=== PATIENT | female | born 1985 ===

== ENCOUNTER 2016-04-01 09:50 | Inpatient (IN) | payer OTHER ==
[~2016-04-01] VITALS: Ht 160 cm; Wt 64.7 kg
[2016-04-01 10:12] VITALS: BP 93/65; PULSE 78
[2016-04-01] MEDS ORDERED: NURSING VERBAL MED ORDER ONE ×3 (10:15→11:00)
[2016-04-01] MEDS ORDERED: FERR1TAB13 PO (10:18)
[2016-04-01] MEDS ORDERED: LEVE250T PO (10:19)
[2016-04-01] MEDS ORDERED: GABA-113 PO (10:19)
[2016-04-01] MEDS ORDERED: POTA10CA28 PO (10:20)
[2016-04-01] MEDS ORDERED: PRENCHW PO (10:21)
[2016-04-01] MEDS ORDERED: PROP80TA2 PO (10:21)
[2016-04-01 10:47] VITALS: BP 93/65; PULSE 78; TEMP 36.7
[2016-04-01] MEDS ORDERED: MAGNESIUM HYDROXIDE SUSP 30 ML UDC PO PRN (11:00)
[2016-04-01] MEDS: LEVETIRACETAM 500 MG TAB PO SCH ×2 (11:00→21:02)
[2016-04-01] MEDS ORDERED: hydrOXYzine HCL 25 MG TAB PO PRN ×2 (11:00)
[2016-04-01] MEDS ORDERED: ALUMINUM/MAGNESIUM SUSP 30 ML UDC PO PRN (11:00)
[2016-04-01] MEDS ORDERED: BISMUTH SUBSALICYLATE PER ML OMNICELL CHARGE PO PRN (11:00)
[2016-04-01] MEDS ORDERED: SODIUM CHLORIDE 0.65% NA SOLN 45 ML (OCEAN) PRN (11:00)
[2016-04-01] MEDS ORDERED: PATIENT'S ALLERGY INFO NEEDS ENTERED SCH (11:30)
[2016-04-01] MEDS ORDERED: METH5TAB2 PO (11:52)
[2016-04-01] MEDS ORDERED: RIZA10TA18 PO (11:52)
[2016-04-01] MEDS ORDERED: PROPRANOLOL HCL 80 MG TAB PO ONE (12:02)
[2016-04-01] MEDS ORDERED: GABAPENTIN 600 MG TAB PO ONE (12:02)
[2016-04-01] MEDS ORDERED: POTASSIUM CHLORIDE 20 MEQ TABCR PO ONE (12:02)
[2016-04-01] MEDS ORDERED: METHADONE HCL 5 MG TAB PO ONE (12:02)
--- NOTE | 2016-04-01 12:54 | HISTORY & PHYSICAL EXAMINATION ---
DATE OF ADMISSION: 04/01/2016 IDENTIFYING INFORMATION: Keturah Lynch is a 30-year-old single white female with a history of depression, anxiety, and polysubstance abuse per her report, who presents as a transfer from [facility] Emergency Room where she presented yesterday with worsening depression and suicidality. She was admitted voluntarily. CHIEF COMPLAINT: "Oh my God me and my boyfriend got into an argument." HISTORY OF PRESENT ILLNESS: The patient has not been seen in our facility before. She was accepted as a transfer from an outside hospital emergency room after she presented there yesterday with a friend and endorsed worsening depression and suicidality in the context of multiple stressors. She is 16 weeks , unemployed, has financial strain and had gone off of her psychiatric medications (Lexapro and Ativan) when she found out she was in December. Two days prior to presentation, she had gotten into a fight with her boyfriend whom she was living with and he kicked her out. She jumped out of a window that was about 10 feet high, and then went to stay with a friend, Wilma, who brought her to the Emergency Room as she was concerned about the patient's safety and her baby's safety. She was given Macrobid in the Emergency Room due to concerns for UTI and her drug screen was positive for methadone, which she says she is prescribed, and amphetamines. She admitted that she had not been caring for herself, had lost 20 pounds in the past 2 months, and had missed her last 2 OB appointments. The outside hospital records indicate that the patient did not want to be admitted to the hospital, but signed a 201. On my assessment today, the patient is seen in her room where she is in bed. She refuses to make eye contact, often turning away, and is a limited historian, giving vague and inconsistent answers. She admits that her mood has been depressed and more irritable, and attributes this to multiple stressors and being taken off "all my psych meds" when she found out she was in early December. She states her PCP prescribes all her psychiatric medications and stopped them abruptly when she learned she was as "they told me they are not safe for the baby." She says she continues to take multiple other medications including potassium, Keppra, gabapentin, methadone, but does not know the doses. She initially told staff her methadone dose was 136mg, but her PCP's office reports that it is 128mg daily. She states that her mood was "fine, actually getting better" until 3 nights ago when she got into an argument with her boyfriend and he kicked her out. They had been living in a house owned by his stepfather, which she states was a bad situation as "we were accused of stealing whenever we came out of the room." She states that prior to the argument, she and her boyfriend were making plans to get jobs and get their own place, but that currently neither of them are employed or have any income. She then contradicts herself, stating that both of them have been "in a bad depression" and had not been functioning well for some time. She states she has talked with her boyfriend since the flight and they have made up and "everything's fine." She says she went to the hospital yesterday because her friend Wilma was concerned about her and wanted her to get the baby checked out, as she had jumped out of the window 2 nights prior during the argument with the boyfriend. She then admits that her friend heard her say "I would rather put a bullet through my head right now," which she admits to saying, but says she was feeling overwhelmed and attributes it to "the stressful situation." She denies that she has access to guns and denies that she wants to hurt herself or her baby. She denies that she was trying to hurt herself when she jumped out of the window and says she was "just trying to leave because he told me to get out." She also states that her boyfriend talked to her friend Wilma and told her to get the patient help because "I can't eat or sleep, I'm stressed, they took me off all my meds." At one point she starts to say that she "took something," but then does not complete the statement and refuses to elaborate when asked. She initially denies taking anything that could have caused a positive amphetamine screen, but then states she has been taking [id number] cold medications, inhalers, and other medications that she would not name. She is angry that she has not yet received her methadone today, stating "they said they already took care of all this at the other place." She was advised that we had to confirm the dose prior to giving it to her to ensure safety and that she is not given too much as it can be dangerous. She blames others for her circumstances saying she had agreed to followup with outpatient providers, but "no one had any patience, they could not get it done." She answers "I don't know" to a lot of questions and gives inconsistent and contradicting reports at times. She does endorse depressed mood. States appetite has been down due to stress and she has lost 20 pounds in the past 2 months. She endorses hopelessness, poor energy and decreased sleep. She denies anhedonia saying she enjoys walking with her boyfriend and spending time with her 10-year-old son. She does endorse irritability. She denies symptoms of melissa now or in the past. She states she becomes suicidal and has suicidal thoughts when she is upset or angry and will also pick at her skin during those times. She reports "bad anxiety" but is vague about the symptoms saying "I don't know" when asked to be more specific. She denies symptoms of psychosis, OCD and PTSD. When asked what her goals of hospitalization are, she says "I don't know." PAST PSYCHIATRIC HISTORY: The patient states she has been diagnosed with depression and anxiety in the past. She states she has never seen a psychiatrist or therapist, but does have a correctional counselor/case manager, a woman named Wednesday, last name unknown, through [facility]. She cannot tell me how long she has been working with this individual. She reports 1 previous psychiatric admission to [facility] in [place] at age 10, and cannot tell me why she was admitted. She denies a history of violence towards others and denies access to guns. She denies a history of suicide attempts, self-injurious behavior. PREVIOUS MEDICATION TRIALS: Include, but are not limited to, Ativan, Klonopin, Xanax, Lexapro, Wellbutrin, Paxil. ALLERGIES: PHENOBARBITAL. PAST MEDICAL HISTORY: PCP is Dr. Hanson. OB is Dr. Cornejo. 1. G2, P1, unintended . Found out she was January 02 and currently 16 weeks per ultrasound at outside hospital. 2. Seizure history, with last seizure in January 2016. 3. Denies a personal history of heart disease, hypertension, hyperlipidemia, diabetes or obesity. 4. History of hypokalemia. FAMILY HISTORY: The patient states she knows nothing about her family history and is not aware if any family members have psychiatric illness, substance abuse or have committed or attempted suicide. Medically, she says she does not know if anyone has heart disease, hypertension, hyperlipidemia, diabetes or obesity. SUBSTANCE ABUSE HISTORY: The patient smokes 1 pack per day. She drank "socially," which she is unable to quantify further, until she found out she was January 02, and denies that she has had any alcohol since that time. She states that she has "used everything there is" in the past as far as recreational drugs including heroin, acid, crack, ecstasy and meth. She has used IV drugs. She refuses to tell me when she last used these substances, or how much she used saying "I don't know." She admits to taking [id number]-nxazaic cold medications, although it is unclear if she was using these recreationally or for cold symptoms. She does not answer when asked about inhalant, organic or synthetic substance abuse. She does not answer questions about previous substance abuse treatment, but denies she is in treatment currently other than receiving methadone at [facility], although this has not yet been confirmed. She specifically denies abusing methamphetamine or amphetamines recently, although her drug screen is positive. SOCIAL HISTORY: The patient grew up in [place] near [place]. She does not know her father and was raised by her mother and stepfather, but has had no contact with them in many years. She states they moved to [place] when she was 14 or 15 and kicked her out. She has lived on her own since then and has not had stable housing. She says she does not know how many siblings she has "1, 2, 4, or 5" but says she does not speak with any of them. She refuses to tell me what brought her to this part of the state saying "I don't even know." She was most recently living with her boyfriend, Marvin, who she has been with for a year, with his stepdad, in [place], [place], until her boyfriend kicked her out of the house a few days ago. She then stayed with a friend, Wilma, in the [place] area. She states she graduated from high school. She is currently unemployed and cannot tell me when she last worked or what types of work she has done in the past. She has 1 child, a 10-year-old son named Andi, whose father lives in [place]. She says she has custody of Andi, but that he is currently in the custody of her grandparents in [place] and she has not seen him since the end of January. She again gives conflicting reports, as she initially stated she had been living with her boyfriend, but then says that she has been homeless since . When asked about history of psychological trauma or abuse, she answers "yep," but refuses to give any further information. She admits to legal problems and criminal charges in the past, but denies any current legal issues or being on probation or parole. When asked about strengths she says "I don't know." REVIEW OF SYSTEMS: Reviewed 10 systems, positive for nausea, which she says is due to not yet receiving her methadone. Others negative except as stated above. VITAL SIGNS: Temperature 36.7, pulse 78, respiratory rate 16, blood pressure 93/65. PHYSICAL EXAMINATION: Physical exam performed at the outside hospital emergency room by JOHANNA Trivedi, was reviewed and accepted for the purposes of this admission. MENTAL STATUS EXAMINATION: This is a well-nourished, well-developed female appearing her stated age. She is lying in bed in no acute distress. She has facial acne and multiple tattoos visible on her upper extremities. She has poor eye contact, averting her gaze or even turning her body away and staring at the opposite wall. No abnormal movements. Gait and station are not observed, as she remains in bed. She is partially cooperative with the interview, but often gives vague or evasive answers, says "I don't know" or gives contradicting reports. She is not necessarily forthcoming with information, specifically about her substance abuse. Speech is minimal, angry, irritated tone. Mood is "not good." Affect is restricted to depressed and irritable. Thoughts are goal directed. She denies suicidality, homicidality, hallucinations, paranoia and delusions. She is alert and oriented x3. Memory, attention and language are grossly intact. Level of intelligence estimated to be average. Insight and judgment are impaired. LABORATORY DONE AT OUTSIDE HOSPITAL: Ultrasound showed an intrauterine at 16 weeks with a heart rate of 159. Urine drug screen was positive for amphetamines and methadone. Urinalysis showed 15, trace proteins, greater than 4 urobilinogen, positive nitrite, and small leukocyte esterase. CBC showed elevated white blood cell count of 17.3. Comprehensive metabolic panel showed elevated AST of 34, and low calcium of 8.3. TSH was low at 0.240. RISK ASSESSMENT: Risk factors include single, race, previous psychiatric diagnosis and hospitalization, suicidality with statements of a plan, depressive and anxiety symptoms, reckless behavior, is and has not been caring for herself or the child, with weight loss, missing OB appointment, taking substances that are unsafe in , and dangerous behaviors such as jumping out of windows, homelessness, unemployed, poor support, inability to provide for herself or her 10-year-old child, likely personality disorder, substance abuse and history of abuse. Protective factors include no access to guns, denies a history of suicide attempts, is willing to see outpatient providers and get treatment, and has a supportive friend who brought her to the Emergency Room. DIAGNOSES: 1. Depression, not otherwise specified, rule out major depressive disorder versus substance induced depression versus personality disorder. 2. Polysubstance abuse (amphetamines, opiates, hallucinogens and likely others). 3. Antisocial personality traits. 4. 16 weeks . 5. Rule out urinary tract infection. 6. Rule out thyroid disease. TREATMENT PLAN: 1. Depressive and anxiety symptoms: Could consider resuming an SSRI while here, as the benefits may outweigh the risks in . However, the patient is irritable and unable to engage in a discussion of the risks and benefits of this today, so we will revisit at a later time. It would also be helpful to get some collateral information about her past symptoms and treatment, as it is not clear that she has a clinical depression and may instead have substance induced symptoms or personality disorder which would not warrant treatment with an antidepressant. She certainly should be following up with a psychiatrist and therapist, as well as a correctional counselor/case manager as an outpatient, and we will assist in making these referrals and coordinating care with her correctional counselor/case manager, Shelly, from [facility]. We will continue her gabapentin for seizures, which may also have some off label benefits for mood and anxiety. 2. Antisocial traits: The patient has a history of repeated arrests, impulsive and reckless behavior, blaming others, irritability, and is not necessarily forthcoming with information and these symptoms may be consistent with an antisocial personality disorder. We will continue to gather information from collateral sources. 3. Suicidality: The patient admits to making statements about shooting herself, but denies that she intended to follow through on this. She denies access to guns and this should be confirmed with whomever she is going to live with at discharge. She should attend groups and work on healthy ways to cope and a safety plan while here and referred to outpatient providers for mental health followup. We will recommend a family meeting with her boyfriend and/or friend Wilma. Will also coordinate care with her methadone clinic and they should be advised of her positive drug screen for amphetamines and collateral information sought from her boyfriend and friend as well. She will be on suicide checks for safety while here. 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 4. Substance abuse: The patient admits to abusing many illicit drugs in the past and states that she is currently on methadone from [facility]. We will need to confirm the methadone dose with them, and can then resume it here. She has also been using other substances as evidenced by her drug screen being positive for amphetamines, and states she does not know what this is from. Will attempt to get collateral from her boyfriend and friend. She was counseled against using stimulants, cold medications and other illicit substances while she is , or at any other time for that matter. She may benefit from substance abuse treatment, which we further clarify her recent substance abuse. 5. : The patient had an ultrasound at the outside hospital emergency room, which was normal. We will need to coordinate care with her embedded software engineer Dr. Cornejo, and arrange followup as she states she has missed her last 2 appointments. We will also need to consider a CYS report as it appears she is abusing substances that are potentially unsafe for the baby, is engaging in reckless and unsafe behavior (jumped out of a window), is not caring for herself and not attending appointments as recommended. 6. Seizure disorder: Continue home doses of gabapentin and Keppra. Coordinate care with PCP, Dr. Hanson, who prescribes her outpatient medications, and ensure followup. 7. Rule out thyroid disease. TSH was low at outside hospital and we will repeat a TSH and free T4 here. 8. Rule out UTI. UA was positive at outside hospital. We will repeat this here and will also get a culture for assistance in determining antibiotic treatment if indicated. [id number]. MTDD
[2016-04-01] MEDS ORDERED: METHADONE ORAL SOLN 2 MG/1ML PO ONE (13:00)
[2016-04-01] MEDS: PRENATAL VITAMIN TAB PO SCH (13:03)
[2016-04-01] MEDS: FERROUS SULFATE 325 MG TAB PO SCH (13:03)
[2016-04-01] MEDS: GABAPENTIN 600 MG TAB PO SCH ×2 (14:00→21:02)
[2016-04-01 15:17] LABS: THYROID STIMULATING HORMONE 0.187 uIu/ml (0.300-4.500)
[2016-04-01 18:22] LABS: URINE APPEARANCE CLOUDY (CLEAR); URINE BILIRUBIN NEG (NEG); URINE COLOR DK YELLOW; URINE EPITHELIAL CELL AUTO >30 /lpf (0-5); URINE NITRITE NEG (NEG); URINE PH 6.5 (4.5-7.5); URINE SPECIFIC GRAVITY 1.019 (1.000-1.030); UROBILINOGEN NEG (NEG); ZZUR CULT IF INDIC CLEAN CATCH YES
[2016-04-01 18:25] LABS: MANUAL MICROSCOPIC REQUIRED? NO; REVIEW REQ? NO
[2016-04-01 19:15] VITALS: Ht 160 cm; Wt 64.7 kg
[2016-04-01] MEDS ORDERED: POTASSIUM CHLORIDE 20 MEQ TABCR PO SCH (22:00)
[2016-04-01] MEDS ORDERED: PROPRANOLOL HCL 80 MG TAB PO SCH (22:00)
[2016-04-02 06:47] VITALS: BP_SYST 97; BP_SYST 98; BP_DIAS 60; BP_DIAS 61; PULSE 70; PULSE 79; TEMP 36.4
[2016-04-02] MEDS ORDERED: METHADONE ORAL SOLN 2 MG/1ML PO SCH (09:00)
[2016-04-02] MEDS ORDERED: METHADONE HCL 5 MG TAB PO SCH (09:00)
[2016-04-02] MEDS: LEVETIRACETAM 500 MG TAB PO SCH ×2 (09:19→21:19)
[2016-04-02] MEDS: FERROUS SULFATE 325 MG TAB PO SCH (09:19)
[2016-04-02] MEDS: GABAPENTIN 600 MG TAB PO SCH ×3 (09:20→21:19)
[2016-04-02] MEDS: PRENATAL VITAMIN TAB PO SCH (09:21)
--- NOTE | 2016-04-02 09:48 | Psychiatric Progress Notes ---
Progress Note Date of Service Apr 02, 2016. Interval History Keturah Lynch is a 30-year-old single white female with a history of depression , anxiety, and polysubstance abuse per her report, who presented as a transfer from [facility] Emergency Room where she presented 03/31/16 with worsening depression and suicidality. She was admitted voluntarily. Chief Complaint "Just stressed about the situation". Subjective Patient was seen & assessed interval progress reviewed with Treatment Team. Staff report she refused all groups yesterday, and was very sedated after receiving her medication, falling asleep while eating. She signed ROIs for her outpatient providers, and records were received from her PCP, OB, and methadone clinic. Today the patient states she is frustrated with being here, saying she feels "set back" by being here, as she wants to get out and work on housing and employment. Staff have been working on clarifying her outpatient medications, as she says she is taking propranolol, Keppra, iron supplements, potassium supplements, vitamin, gabapentin 600mg tid, and methadone clinic. We got a fax from [facility] stating her methadone dose is 128mg daily, but the patient insists it is 136mg. Staff have not been able to contact [facility] and was told the phones have been down since yesterday. She says she uses [facility] from [place], and staff are in the process of obtaining a current med list. She is poorly able to describe the recommendations she has been given by her PCP regarding her medications, and doesn't know if she was supposed to stop any of them or not, other than the Lexapro and Ativan, which she understands were discontinued and were stopped in early Dec. when she found out she was . She admits she was supposed to follow up with Dr. Hanson in Jan., but didn't go as she didn't have transportation. She says she missed all her OB appointments due to no transportation, although she was supposed to be meeting with her social work case manager to work on getting medical assistance transportation. She says she is undecided about what to do with respect to her , and has no one to talk to about it. She is not sure if her boyfriend is the father, as she had another partner as well around the time she got . He has asked her to get a DNA test but she doesn't have the money. She thinks the Lexapro was working for her mood and anxiety, and had also been on Zoloft in the past, but thinks the Lexapro worked the best. She was on 20mg for about a year, and didn't have any side effects. Her mood and anxiety both worsened after it was stopped, abruptly per her report, at her ER visit Dec. 7 when she found out she was . We reviewed the risks of untreated depression and anxiety, her past episodes of depression and anxiety, and risks of Lexapro in , as she would like to resume that medication as it worked the best for her. 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 She wants to get a job and get her own place, but is poorly able to figure out how she will do this, due to lack of stable housing and transportation. Sleep Information Total Hours of Sleep: 7.75 Meal Information Percent of Breakfast Consumed: 0 Percent of Dinner Consumed: 100 Mental Status Exam During interview pt is: alert and oriented, cooperative Appearance: appropriately dressed, disheveled Eye contact is: poor (looks at floor) Motor behavior is: steady gait & station, psychomotor agitation Speech: normal in rate, rhythm & volume Affect: depressed, anxious, constricted Mood is: other ("stressed") Thought process: goal directed Thought content: reality based without delusions Suicidal thought are: denied Homicidal thoughts are: denied Hallucinations: denies auditory, denies visual Cognition: attention grossly intact, language grossly intact, other (memory impaired as evidenced by inability to recall instructions she was given regarding medications.) Intelligence estimated to be: average Insight: impaired Judgement: impaired Medication Trials (1) Past Psych Meds Include, but not limited to: Ativan, Klonopin, Xanax, Lexapro, Wellbutrin, Paxil, Zoloft Last Edited By: Ester Ferrell on Apr 02, 2016 11:00 Impression Remains depressed and anxious with acute risk due to inability to care for self , baby and recent SI/erratic behavior/drug use. RISK ASSESSMENT: Risk factors include single, race, previous psychiatric diagnosis and hospitalization, suicidality with statements of a plan, depressive and anxiety symptoms, reckless behavior, is and has not been caring for herself or the child, with weight loss, missing OB appointment, taking substances that are unsafe in , and dangerous behaviors such as jumping out of windows, homelessness, unemployed, poor support, inability to provide for herself or her 10-year-old child, likely personality disorder, substance abuse and history of abuse. Protective factors include no access to guns, denies a history of suicide attempts, is willing to see outpatient providers and get treatment, and has a supportive friend who brought her to the Emergency Room. DIAGNOSES: 1. Depression, not otherwise specified, rule out major depressive disorder versus substance induced depression versus personality disorder. 2. Polysubstance abuse (amphetamines, opiates, hallucinogens and likely others) . 3. Antisocial personality traits. 4. 16 weeks . 5. Rule out urinary tract infection. 6. Rule out thyroid disease. 7. Hepatitis C Continued Inpatient Care Depression and substance abuse are ongoing and patient is not able to provide for her basic needs and is at imminent risk of harm to both herself and her fetus. Plan (1) Suicidal ideation 04/01/16 - The patient admits to making statements about shooting herself, but denies that she intended to follow through on this. She denies access to guns and this should be confirmed with whomever she is going to live with at discharge. She should attend groups and work on healthy ways to cope and a safety plan while here and referred to outpatient providers for mental health followup. We will recommend a family meeting with her boyfriend and/or friend Wilma. Will also coordinate care with her methadone clinic and they should be advised of her positive drug screen for amphetamines and collateral information sought from her boyfriend and friend as well. She will be on suicide checks for safety while here. She indicates that she does not have a courtesy driver's license and does not drive. (2) Depression 04/01/16 - Could consider resuming an SSRI while here, as the benefits may outweigh the risks in . However, the patient is irritable and unable to engage in a discussion of the risks and benefits of this today, so we will revisit at a later time. It would also be helpful to get some collateral information about her past symptoms and treatment, as it is not clear that she has a clinical depression and may instead have substance induced symptoms or personality disorder which would not warrant treatment with an antidepressant. She certainly should be following up with a psychiatrist and therapist, as well as a social work case manager as an outpatient, and we will assist in making these referrals and coordinating care with her social work case manager, Shelly, from [facility]. We will continue her gabapentin for seizures, which may also have some off label benefits for mood and anxiety. 04/02/16 - Discussed SSRI medication, as patient states her depressive and anxiety symptoms are severe, debilitating, and have progressed to point of suicidal thoughts. She reports a good response to Lexapro 20mg which she was on for a year and tolerated well. We reviewed the risks of not treating her depression and anxiety, including impaired ability to function and provide for her basic needs, suicide, harm to the baby due to not caring for herself or going to appointments, relapse of substance abuse, and attempted to compare these to the risks of taking Lexapro in . Provided her with a patient handout about the known risks of Lexapro in , both in development and postnatally, and reviewed these, as well as the problems with limited data available and lack of good controlled studies. She stated she would like to go back on the Lexapro, which is a reasonable decision given her previous good response, the severity of her current and past depressive and anxiety symptoms, and the fact that there was already exposure in her first month of . The risks of untreated depression and anxiety in this patient, both to her and to her baby, appear to outweigh the risks of taking an SSRI in . Will start 5mg daily and can titrate upwards as tolerated. She will need to follow up with a psychiatrist in her area. Would also recommend therapy, which she is resistant to, saying she doesn't trust anyone. Will continue to educate and encourage her to consider this option, as she has very poor supports. (3) Noncompliance Noncompliant with medications and appointments. Involve outpatient social work case manager to assist in arranging transportation, and educate/encourage better compliance. (4) Opiate addiction 04/01/16 - The patient admits to abusing many illicit drugs in the past and states that she is currently on methadone from [facility]. We will need to confirm the methadone dose with them, and can then resume it here. Staff have not been able to contact [facility] due to their phones being down, but did get a faxed report from them dated 03/19/16 which indicates her methadone dose at that time was 128mg daily. The patient reported her dose is 136mg daily , but will order 128mg to avoid oversedation if the higher dose is incorrect. 04/02/16 - Staff have been calling [facility] repeatedly since the patient arrived yesterday morning, and have not been able to reach anyone. They spoke with someone at [facility] who stated the phone system is down. Will continue 128mg dose until we can reach [facility] and confirm her most recent dose. The methadone clinic staff should also be made aware of her positive drug screen for amphetamines. Staff able to contact methadone clinic and confirmed that most recent dose is 136mg, last given on 03/31/16. Will give that dose here. (5) Amphetamine abuse She has also been using other substances as evidenced by her drug screen being positive for amphetamines, and states she does not know what this is from. Will attempt to get collateral from her boyfriend and friend. She was counseled against using stimulants, cold medications and other illicit substances while she is , or at any other time for that matter. She may benefit from substance abuse treatment, which we further clarify her recent substance abuse. (6) Antisocial personality disorder 04/01/16 - Antisocial traits: The patient has a history of repeated arrests, impulsive and reckless behavior, blaming others, irritability, and is not necessarily forthcoming with information and these symptoms may be consistent with an antisocial personality disorder. We will continue to gather information from collateral sources. (7) Polysubstance abuse History of abusing "every drug there is." Refuses to clarify recent substance use. (8) The patient had an ultrasound at the outside hospital emergency room, which was normal. 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 Cornejo, and arrange followup as she states she has missed her last 3 appointments. We will also need to consider a CYS report as it appears she is abusing substances that are potentially unsafe for the baby, is engaging in reckless and unsafe behavior (jumped out of a window), is not caring for herself and not attending appointments as recommended. 04/02/16 - Patient states she won't attend OB appointments, despite this being a high risk , saying she doesn't have transportation. - Made mandated CYS report due to the above, spoke with Carmen at [facility] in [place], who is familiar with the patient. She will try to locate her 10 year old child and ensure his safety. They may be in contact with her, depending on what they determine about her child. She will be in contact with the patient at some point and can offer services through [employer], information about the local fpc, and help getting her to appointments. - Would benefit from social support services, which her OB has referred her to- will ask social work to follow up on that. (9) Fibromyalgia Continue gabapentin at home dose of 600mg tid per PCP's notes. Will need follow up with PCP, Dr Hanson. (10) Seizure disorder 04/01/16 - Continue home doses of gabapentin and Keppra. Coordinate care with PCP, Dr. Hanson, who prescribes her outpatient medications, and ensure followup. 04/02/16 - Reviewed records from PCP, last visit in Dec., and it is not clear which meds she stopped or continued, as the note states to stop propranolol, Keppra, and Maxalt, but then lists them as active prescriptions. Called and spoke to nurse at her clinic, who was also unsure of which medications the patient was supposed to be taking. She will review with Dr. Hanson and call us back to clarify the correct medications. IN the interim, staff obtained a med list from her pharmacy, which indicates recent prescriptions for gabapentin, Se- and ferrous sulfate, although she filled Keppra, Maxalt, propranolol and potassium on 03/04/16. Will continue Keppra for now as patient states she has been taking it daily, but may need to discontinue based on PCP's recommendations. (11) Hepatitis C Has a GI specialist, Dr. Guzman, but not in treatment currently. (12) Rule out UTI UA repeated here and was contaminated sample, awaiting culture results. (13) Rule out hypthyroid TSH low at OSH, Repeated here and TSH low, but free T4 normal. Discharge / Aftercare Planning Primary Care Physician: Name: Grecia Landis Psychiatrist: Name: none Therapist: Name: none Ota: Name: Wednesday at [facility] [place] [facility] Visit Code E&M Code: 36046 Data Vital Signs Last 24 Hrs: Date Time Temp Pulse Resp B/P Pulse Ox O2 Delivery O2 Flow Rate FiO2 04/02/16 06:47 36.4 70 16 98/61 79 97/60 04/01/16 10:47 36.7 78 16 93/65 04/01/16 10:12 78 16 93/65 Meds Administered Last 24 Hrs: Meds Administered (Past 24Hrs) Medications (Trade) Dose Ordered Sig/Tamika Route Start Time Stop Time Status Last Admin Dose Admin Levetiracetam (Keppra Tab) 500 mg BID PO 04/01/16 11:00 05/01/16 10:59 04/02/16 09:19 500 MG Ferrous Sulfate (Feosol Tab) 325 mg QAM PO 04/02/16 09:00 05/02/16 08:59 04/02/16 09:19 325 MG Prenat Multivit/ Sharp/Iron/Folic Ac ( Vitamin Tab) 1 tab QAM PO 04/02/16 09:00 05/02/16 08:59 04/02/16 09:21 1 TAB Miscellaneous Information (Patient'S Allergy Info Needs Entered) 1 ea Q30M N/A 04/01/16 11:30 04/01/16 12:21 DC 04/01/16 11:15 1 EA Gabapentin (Neurontin Tab) 600 mg TID PO 04/01/16 14:00 04/02/16 09:20 600 MG Gabapentin (Neurontin Tab) 600 mg 1202 ONCE PO 04/01/16 12:02 04/01/16 12:22 DC 04/01/16 12:55 600 MG Potassium Chloride (Klor-Con Tab) 20 meq 1202 ONCE PO 04/01/16 12:02 04/01/16 12:22 DC 04/01/16 12:55 20 MEQ Propranolol HCl (Inderal Tab) 80 mg 1202 ONCE PO 04/01/16 12:02 04/01/16 12:22 DC 04/01/16 12:56 80 MG Methadone HCl (Methadone HCl) 128 mg 1300 ONCE PO 04/01/16 13:00 04/01/16 13:01 DC 04/01/16 12:52 128 MG Methadone HCl (Methadone HCl) 128 mg QAM PO 04/02/16 09:00 04/16/16 08:59 1/5/17 09:20 128 MG Lab Results Last 24 Hrs: Last 24 Hours Test 04/01/16 13:39 04/01/16 18:00 Thyroid Stimulating Hormone (TSH) 0.187 uIu/ml Free Thyroxine 1.02 ng/dl Urine Color DK YELLOW Urine Appearance CLOUDY Urine pH 6.5 Urine Specific [place] 1.019 Urine Protein NEG Urine Glucose (UA) NEG Urine Ketones NEG Urine Occult Blood NEG Urine Nitrite NEG Urine Bilirubin NEG Urine Urobilinogen NEG Urine Leukocyte Esterase SMALL Urine WBC (Auto) >30 /hpf Urine RBC (Auto) 0-4 /hpf Urine Hyaline Casts (Auto) 5-10 /lpf Urine Epithelial Cells (Auto) >30 /lpf Urine Bacteria (Auto) 1+
[2016-04-02] MEDS ORDERED: ESCITALOPRAM OXALATE 10 MG TAB PO ONE (10:48)
[2016-04-02] MEDS: ACETAMINOPHEN 325 MG TAB PO PRN (12:04)
[2016-04-03 06:46] VITALS: BP_SYST 113; BP_SYST 114; BP_DIAS 67; BP_DIAS 71; PULSE 57; PULSE 78; TEMP 36.6
[2016-04-03] MEDS ORDERED: ESCITALOPRAM OXALATE 10 MG TAB PO SCH (09:00)
[2016-04-03] MEDS ORDERED: METHADONE ORAL SOLN 2 MG/1ML PO SCH (09:00)
[2016-04-03] MEDS: FERROUS SULFATE 325 MG TAB PO SCH (09:17)
[2016-04-03] MEDS: PRENATAL VITAMIN TAB PO SCH (09:18)
[2016-04-03] MEDS: GABAPENTIN 600 MG TAB PO SCH ×2 (09:18→13:43)
[2016-04-03] MEDS: LEVETIRACETAM 500 MG TAB PO SCH (09:18)
[2016-04-03] MEDS: ACETAMINOPHEN 325 MG TAB PO PRN (11:59)
[2016-04-03] MEDS ORDERED: RIZATRIPTAN BENZOATE 10 MG TAB PO ONE (12:30)
[2016-04-03] MEDS ORDERED: LXP10 PO (13:39)
[2016-04-03] MEDS ORDERED: LEVE500T PO (13:39)
--- NOTE | 2016-04-03 13:54 | Discharge Instructions ---
Discharge Information Report Includes Report will include the: Discharge Instructions & Summary Admission Admission Date / Time: Apr 01, 2016 at 09:50 Reason for Admission: Major Depression Disorder Recurrent Discharge Discharge Diagnosis / Problem: Major depressive disorder, opiate dependence Condition at Discharge: Good Discharge Goals Goal(s): Decrease discomfort, Improve disease control, Prevent Disease Progression Activity Recommendations Activity Limitations: resume your previous activity . Instructions / Follow-Up Instructions / Follow-Up . SPECIAL CARE INSTRUCTIONS: 1. Follow through with your scheduled aftercare appointments. If unable to keep an appointment, please call to reschedule. 2. Take your medication only as prescribed. Medication should not be changed or stopped without the approval of your doctor. In the event of worsening symptoms or concerns about side effects, contact your doctor immediately. 3. Utilize new healthy coping skills, anger management skills, and stress management skills learned during your hospitalization. Journal feelings and process them with a support person. Identify stressors or situations that may result in relapse, deterioration or inappropriate behaviors and develop a plan to deal with those issues. 4. If your coping skills are ineffective and you are in crisis, contact your outpatient providers for direction. If unable to reach your providers, please call the CAN HELP LINE AT or go to the closest Emergency Room. 5. Avoid alcohol and un-prescribed drugs. 6. You have been provided with the Mental Health Advance Directives Pamphlet for your review. AFTERCARE APPOINTMENTS: * Please call your insurance company prior to your scheduled appointment to confirm your aftercare providers are covered. Take your insurance information to your appointments. . 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 Cornejo, OB-Small Boat Engineer Other: Name of Appointment #1: Dr. Krause . Follow-Up Care Plan for Follow-Up Care: Patient has prompt follow up appts and a willingness to be compliant. Current Hospital Diet Patient's current hospital diet: Regular Diet Discharge Diet Recommended Diet: Regular Diet Procedures Procedures Performed: No Pending Studies Pending Studies at Discharge: No Medical Emergencies . Who to Call and When: Medical Emergencies: For questions or emergencies related to your hospital stay, please contact the Inpatient Behavioral Health Unit at [phone]. A bisque placer is on-call 19/10 for the Behavioral Health Unit for emergencies At any time you feel your situation is an emergency, you may also call 911 immediately. . Non-Emergent Contact Non-Emergency issues call your: Primary Care Provider, Psychiatrist, Therapist Advance Directives Existing Advance Directive: No Do You Have an Existing Mental: No Existing Living Will: No Existing Power of Bag Hanger: No Discharge Summary Admission HPI Per the Admitting provider: Please refer to the attached H&P Hospital Course (1) Suicidal ideation 04/01/16 - The patient admits to making statements about shooting herself, but denies that she intended to follow through on this. She denies access to guns and this should be confirmed with whomever she is going to live with at discharge. She should attend groups and work on healthy ways to cope and a safety plan while here and referred to outpatient providers for mental health followup. We will recommend a family meeting with her boyfriend and/or friend Wilma. Will also coordinate care with her methadone clinic and they should be advised of her positive drug screen for amphetamines and collateral information sought from her boyfriend and friend as well. She will be on suicide checks for safety while here. 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 (2) Depression 04/01/16 - Could consider resuming an SSRI while here, as the benefits may outweigh the risks in . However, the patient is irritable and unable to engage in a discussion of the risks and benefits of this today, so we will revisit at a later time. It would also be helpful to get some collateral information about her past symptoms and treatment, as it is not clear that she has a clinical depression and may instead have substance induced symptoms or personality disorder which would not warrant treatment with an antidepressant. She certainly should be following up with a psychiatrist and therapist, as well as a piano case maker as an outpatient, and we will assist in making these referrals and coordinating care with her piano case maker, Shelly, from [facility]. We will continue her gabapentin for seizures, which may also have some off label benefits for mood and anxiety. 04/02/16 - Discussed SSRI medication, as patient states her depressive and anxiety symptoms are severe, debilitating, and have progressed to point of suicidal thoughts. She reports a good response to Lexapro 20mg which she was on for a year and tolerated well. We reviewed the risks of not treating her depression and anxiety, including impaired ability to function and provide for her basic needs, suicide, harm to the baby due to not caring for herself or going to appointments, relapse of substance abuse, and attempted to compare these to the risks of taking Lexapro in . Provided her with a patient handout about the known risks of Lexapro in , both in development and postnatally, and reviewed these, as well as the problems with limited data available and lack of good controlled studies. She stated she would like to go back on the Lexapro, which is a reasonable decision given her previous good response, the severity of her current and past depressive and anxiety symptoms, and the fact that there was already exposure in her first month of . The risks of untreated depression and anxiety in this patient, both to her and to her baby, appear to outweigh the risks of taking an SSRI in . Will start 5mg daily and can titrate upwards as tolerated. She will need to follow up with a psychiatrist in her area. Would also recommend therapy, which she is resistant to, saying she doesn't trust anyone. Will continue to educate and encourage her to consider this option, as she has very poor supports. (3) Noncompliance Noncompliant with medications and appointments. Involve outpatient piano case maker to assist in arranging transportation, and educate/encourage better compliance. (4) Opiate addiction 04/01/16 - The patient admits to abusing many illicit drugs in the past and states that she is currently on methadone from [facility]. We will need to confirm the methadone dose with them, and can then resume it here. Staff have not been able to contact [facility] due to their phones being down, but did get a faxed report from them dated 03/19/16 which indicates her methadone dose at that time was 128mg daily. The patient reported her dose is 136mg daily , but will order 128mg to avoid oversedation if the higher dose is incorrect. 04/02/16 - Staff have been calling [facility] repeatedly since the patient arrived yesterday morning, and have not been able to reach anyone. They spoke with someone at [facility] who stated the phone system is down. Will continue 128mg dose until we can reach [facility] and confirm her most recent dose. The methadone clinic staff should also be made aware of her positive drug screen for amphetamines. Staff able to contact methadone clinic and confirmed that most recent dose is 136mg, last given on 03/31/16. Will give that dose here. (5) Amphetamine abuse She has also been using other substances as evidenced by her drug screen being positive for amphetamines, and states she does not know what this is from. Will attempt to get collateral from her boyfriend and friend. She was counseled against using stimulants, cold medications and other illicit substances while she is , or at any other time for that matter. She may benefit from substance abuse treatment, which we further clarify her recent substance abuse. (6) Antisocial personality disorder 04/01/16 - Antisocial traits: The patient has a history of repeated arrests, impulsive and reckless behavior, blaming others, irritability, and is not necessarily forthcoming with information and these symptoms may be consistent with an antisocial personality disorder. We will continue to gather information from collateral sources. (7) Polysubstance abuse History of abusing "every drug there is." Refuses to clarify recent substance use. (8) The patient had an ultrasound at the outside hospital emergency room, which was normal. We will need to coordinate care with her traffic manager Dr. Cornejo, and arrange followup as she states she has missed her last 3 appointments. We will also need to consider a CYS report as it appears she is abusing substances that are potentially unsafe for the baby, is engaging in reckless and unsafe behavior (jumped out of a window), is not caring for herself and not attending appointments as recommended. 04/02/16 - Patient states she won't attend OB appointments, despite this being a high risk , saying she doesn't have transportation. - Made mandated CYS report due to the above, spoke with Carmen at [facility] in [place], who is familiar with the patient. She will try to locate her 10 year old child and ensure his safety. They may be in contact with her, depending on what they determine about her child. She will be in contact with the patient at some point and can offer services through [employer], information about the local fpc, and help getting her to appointments. - Would benefit from social support services, which her OB has referred her to- will ask social work to follow up on that. (9) Fibromyalgia Continue gabapentin at home dose of 600mg tid per PCP's notes. Will need follow up with PCP, Dr Hanson. (10) Seizure disorder 04/01/16 - Continue home doses of gabapentin and Keppra. Coordinate care with PCP, Dr. Hanson, who prescribes her outpatient medications, and ensure followup. 04/02/16 - Reviewed records from PCP, last visit in Dec., and it is not clear which meds she stopped or continued, as the note states to stop propranolol, Keppra, and Maxalt, but then lists them as active prescriptions. Called and spoke to nurse at her clinic, who was also unsure of which medications the patient was supposed to be taking. She will review with Dr. Hanson and call us back to clarify the correct medications. IN the interim, staff obtained a med list from her pharmacy, which indicates recent prescriptions for gabapentin, Se- and ferrous sulfate, although she filled Keppra, Maxalt, propranolol and potassium on 03/04/16. Will continue Keppra for now as patient states she has been taking it daily, but may need to discontinue based on PCP's recommendations. (11) Hepatitis C Has a GI specialist, Dr. Guzman, but not in treatment currently. (12) Rule out UTI UA repeated here and was contaminated sample, awaiting culture results. (13) Rule out hypthyroid TSH low at OSH, Repeated here and TSH low, but free T4 normal. Risk Factors Assessment : Yes /single/: Yes Higher / Fall in social status: No Access to guns: No Mental Health Diagnoses: Yes Substance use disorders: Yes Previous psychiatric stay: Yes Hopelessness: No Smoker: Yes Protective Factors Assessment Oriental Orthodox beliefs: No : No Responsible for young children: No Employed: No Stable relationships: No Supportive family: No Day of Discharge Assessment COURSE OF HOSPITALIZATION: During the patient's brief 2 day stay, she was stabilized on Lexapro 5 mg daily. She was fully consented to the potential risks to she and her unborn child, accepted these and wanted to proceed. She was continued on her medical medications. The patient indicated that her suicidal statements came as a result of an argument with her boyfriend. She is , and feeling under stress that she has been homeless since . With a help of the psychotherapist social worker, she was able to come up with a discharge plan, including finding a ride home, a ride to the methadone clinic to him tomorrow. they were able to obtain outpatient psychiatric appointments as well with a prompt intake for services. She denied suicidality throughout her stay, was committed to receiving good treatment prenatally for her child. She was continued on methadone for her opiate dependence, and will be able to see them very early tomorrow morning for dosing and prescription. Phone meeting was held with the patient's boyfriend during her stay. He had been concerned because she had been isolating prior to admission but after speaking with her, felt comfortable with her being discharged. Housing continues to be a significant concern as they are homeless. Patient will be able to stay at her boyfriend's mother's apartment at least for several weeks until she can arrange alternate housing. She has arranged for her friend Wednesday and her boyfriend to come pick her up today. DAY OF DISCHARGE ASSESSMENT: Today the patient is requesting discharge. She feels ready to go home and denies that she is feeling depressed or suicidal. She is happy with her aftercare arrangements. She denies any suicidal or homicidal thinking. She has never shown any evidence of thought disorder. Today she is casually and appropriately dressed and groomed, recently showered. Dentition remains impaired. Eye contact is good. Affect is restricted. Speech is of normal rate volume and tone. Thoughts are organized and goal directed, and without evidence of thought disorder. Recent and remote memory are intact, intelligence is estimated to be average. Insight and judgment are improved over admission. Laboratory Test 04/01/16 13:39 04/01/16 18:00 Thyroid Stimulating Hormone (TSH) 0.187 uIu/ml (0.300-4.500) Free Thyroxine 1.02 ng/dl (0.80-1.60) Urine Color DK YELLOW Urine Appearance CLOUDY (CLEAR) Urine pH 6.5 (4.5-7.5) Urine Specific Harlan 1.019 (1.000-1.030) Urine Protein NEG (NEG) Urine Glucose (UA) NEG (NEG) Urine Ketones NEG (NEG) Urine Occult Blood NEG (NEG) Urine Nitrite NEG (NEG) Urine Bilirubin NEG (NEG) Urine Urobilinogen NEG (NEG) Urine Leukocyte Esterase SMALL (NEG) Urine WBC (Auto) >30 /hpf (0-5) Urine RBC (Auto) 0-4 /hpf (0-4) Urine Hyaline Casts (Auto) 5-10 /lpf (0-5) Urine Epithelial Cells (Auto) >30 /lpf (0-5) Urine Bacteria (Auto) 1+ (NEG) Date/Time Source Procedure Growth Status 04/01/16 18:00 Urine , Clean Catch Urine Culture - Final THREE TYPES OF ORGANSIMS PRESENT, ALL... Complete Total Time Total Time Spent (min): Greater than 30 minutes Total Time Included: examination of the patient, discharge planning, medication reconciliation, communication with other providers Tobacco Cessation at Discharge FDA approved Prescription: patient refused
== END 2016-04-03 19:35 | disposition home or self-care (01) | DRG 781 ==
LOC: C.MHU 09:50
PROVIDERS: ADMIT Psychiatry & Neurology Psychiatry; ATTEND Psychiatry & Neurology Psychiatry
DX: O99.342 Other mental disorders complicating pregnancy, second trimester (principal); F33.9 Major depressive disorder, recurrent, unspecified; O99.322 Drug use complicating pregnancy, second trimester; F11.20 Opioid dependence, uncomplicated; R45.851 Suicidal ideations; O99.355 Diseases of the nervous system complicating the puerperium; O23.42 Unspecified infection of urinary tract in pregnancy, second trimester; O98.412 Viral hepatitis complicating pregnancy, second trimester; O99.332 Smoking (tobacco) complicating pregnancy, second trimester; F15.10 Other stimulant abuse, uncomplicated; F16.10 Hallucinogen abuse, uncomplicated; F19.10 Other psychoactive substance abuse, uncomplicated; F60.2 Antisocial personality disorder; F17.210 Nicotine dependence, cigarettes, uncomplicated; Z91.19 Patient's noncompliance with other medical treatment and regimen; O26.892 Other specified pregnancy related conditions, second trimester; M79.7 Fibromyalgia; Z59.0 Homelessness; G40.909 Epilepsy, unspecified, not intractable, without status epilepticus; B19.20 Unspecified viral hepatitis C without hepatic coma; O99.282 Endocrine, nutritional and metabolic diseases complicating pregnancy, second trimester; E03.9 Hypothyroidism, unspecified; F41.9 Anxiety disorder, unspecified; Z3A.16 16 weeks gestation of pregnancy; Z79.899 Other long term (current) drug therapy